=== PATIENT | male | born 1965 | race African-American/Black ===

== ENCOUNTER 2018-03-15 12:14 | Emergency (ER) | payer OTHER ==
[~2018-03-15] VITALS: Ht 185.4 cm; Wt 105.0 kg
[~2018-03-15 12:14] MED LIST: FLEXERIL5 MG PO; NAPROSYN250 MG PO; NAPROSYN500 MG PO; NOHOMEMEDS; VICODIN,LORT1 TABLET PO
[2018-03-15] MEDS ORDERED: INDOMETHACIN50 MG PO (12:30)
[2018-03-15 12:39] LABS: HEMATOCRIT 41.1 % (38.0-50.0); HEMOGLOBIN 14.6 G/DL (12.5-16.6); MCH 28.3 PG (29.0-34.0); MCHC 35.5 G/DL (30.0-36.0); MCV 79.8 FL (86-99); PLATELET COUNT 195 K/uL (156-360); RBC DIS.WIDTH-CV 12.9 % (11.8-14.6); RBC DIS.WIDTH-SD 36.9 % (39-53); RED BLOOD COUNT 5.15 M/uL (4.00-5.50); WHITE BLOOD COUNT 4.6 K/uL (4.1-10.2)
[2018-03-15 12:50] LABS: ALBUMIN 4.2 g/dL (3.2-4.8); CHLORIDE 107 mEq/L (99-109); SODIUM 140 mEq/L (136-147)
[2018-03-15 12:53] LABS: GLUCOSE 148 mg/dL (70-99); TOTAL PROTEIN 7.5 g/dL (6.4-8.3)
[2018-03-15 12:55] LABS: TOTAL BILIRUBIN 0.4 mg/dL (0.0-1.0)
[2018-03-15 12:56] LABS: ALKALINE PHOSPHATASE 59 IU/L (3-129)
[2018-03-15 12:57] LABS: GFR ESTIMATE (CALCULATED) > 59 mL/min/ (58.99-99999)
[2018-03-15 12:58] LABS: AST (GOT) 18 IU/L (2-34); DIRECT BILIRUBIN 0.2 mg/dL (0.0-0.3); UREA NITROGEN (BUN) 15 mg/dL (9-23)
[2018-03-15 13:00] LABS: ALT (GPT) 15 IU/L (3-49)
[2018-03-15 13:01] LABS: TROP-I INTERPRETATION NEGATIVE; TROPONIN-I < 0.01 ng/mL (0.0-0.30)
[2018-03-15] MEDS ORDERED: ULTRAM50 MG PO (14:02)
[2018-03-15] MEDS ORDERED: PROTONIX40 MG PO (14:02)
[2018-03-15] MEDS ORDERED: OMEPRAZOLE40 M1 PO (14:09)
[2018-03-15 14:26] VITALS: BP 105/70
== END 2018-03-15 14:32 | disposition home or self-care (01) ==
LOC: EME 12:14
DX: K21.0 Gastro-esophageal reflux disease with esophagitis (principal); R42 Dizziness and giddiness; F41.0 Panic disorder [episodic paroxysmal anxiety]; F41.9 Anxiety disorder, unspecified; F17.200 Nicotine dependence, unspecified, uncomplicated
CPT/HCPCS: 70450; 71046; 80048; 80076; 84484; 85027; 93005